=== PATIENT | female | born 1980 | race Caucasian/White ===

== ENCOUNTER 2019-04-29 10:03 | Emergency (ER) | payer OTHER, MEDICAID ==
[~2019-04-29] VITALS: Ht 177.8 cm; Wt 93.0 kg
[2019-04-29 10:14] VITALS: BP 113/74
[2019-04-29] MEDS ORDERED: BACLOFEN 10MG T10 MG PO (10:20)
[2019-04-29] MEDS ORDERED: GABAPENTIN600 M1 PO (10:20)
[2019-04-29] MEDS ORDERED: CELEXA40 MG PO (10:20)
[2019-04-29] MEDS ORDERED: MINIPRESS1 MG PO (10:21)
[2019-04-29] MEDS ORDERED: BUSPIRONE HCL10 MG PO (10:25)
[2019-04-29 11:06] LABS: INFLUENZA A ANTIGEN Negative (Negative); INFLUENZA B ANTIGEN Negative (Negative)
[2019-04-29 11:23] LABS: ABSOLUTE EOSINOPHILS 0.1 thou/uL (0.0-0.7); ABSOLUTE LYMPHOCYTES 1.9 thou/uL (0.8-5.3); ABSOLUTE NEUTROPHILS 7.1 thou/uL (1.6-8.1); BASOPHILS 0.3 %; EOSINOPHILS 0.5 %; HEMATOCRIT 37.7 % (37.0-47.0); HEMOGLOBIN 13.1 gm/dL (12.0-15.0); MCH 29.6 pg (26.0-34.0); MCHC 34.7 g/dL (28.0-37.0); MCV 85.4 fL (80.0-100.0); MONOCYTES 9.9 %; MPV 6.3 fl. (7.2-11.1); NUCLEATED RBCS 0 /100WBC; PLATELET COUNT* 336 thou/uL (150-400); POLYS 70.3 %; RBC 4.42 mil/uL (4.20-5.00); RDW-CV 16.3 % (10.5-14.5); WBC 10.1 thou/uL (4.0-11.0)
[2019-04-29 11:38] LABS: CREATININE 0.8 mg/dL (0.6-1.3); POTASSIUM 3.6 mmol/L (3.5-5.1)
[2019-04-29 11:54] LABS: ALBUMIN 3.3 g/dL (3.4-5.0); TOTAL BILIRUBIN 0.4 mg/dL (<0.1-1.0); TOTAL PROTEIN 7.3 g/dL (6.4-8.2)
[2019-04-29] MEDS ORDERED: AUGMENTIN 500-1 EACH PO (12:07)
[2019-04-29] MEDS ORDERED: PREDNISONE 10 M10 MG PO (12:07)
[2019-04-29] MEDS ORDERED: PROMETHAZI6.25 MG/5 PO (12:07)
[2019-04-29] MEDS ORDERED: TESSALON PERLE100 MG PO (12:07)
[2019-04-29] MEDS ORDERED: PROAIR HFA8.5 GM INH (12:07)
== END 2019-04-29 12:18 | disposition home or self-care (01) ==
LOC: M.ERS 10:03
PROVIDERS: Physician Assistant
DX: J20.9 Acute bronchitis, unspecified (principal); G62.9 Polyneuropathy, unspecified; Z88.6 Allergy status to analgesic agent; Z88.8 Allergy status to other drugs, medicaments and biological substances; Z90.710 Acquired absence of both cervix and uterus; Z86.2 Personal history of diseases of the blood and blood-forming organs and certain disorders involving the immune mechanism

== ENCOUNTER 2019-06-27 21:14 | Emergency (ER) | payer OTHER, MEDICAID ==
[~2019-06-27] VITALS: Ht 177.8 cm; Wt 88.5 kg
[~2019-06-27 21:14] MED LIST: AUGMENTIN 500-1 EACH PO; BACLOFEN 10MG T10 MG PO; BUSPIRONE HCL10 MG PO; CELEXA40 MG PO; GABAPENTIN600 M1 PO; MINIPRESS1 MG PO; PREDNISONE 10 M10 MG PO; PROAIR HFA8.5 GM INH; PROMETHAZI6.25 MG/5 PO; TESSALON PERLE100 MG PO
[2019-06-27 22:09] LABS: INFLUENZA A ANTIGEN Negative (Negative); INFLUENZA B ANTIGEN Negative (Negative)
[2019-06-27] MEDS ORDERED: ROXICODONE5 MG PO (22:21)
[2019-06-27 22:44] VITALS: BP 131/64
== END 2019-06-27 22:45 | disposition home or self-care (01) ==
LOC: M.ERS 21:14
PROVIDERS: Nurse Practitioner Family
DX: R07.82 Intercostal pain (principal); G62.9 Polyneuropathy, unspecified; Z88.6 Allergy status to analgesic agent; Z88.8 Allergy status to other drugs, medicaments and biological substances; Z90.710 Acquired absence of both cervix and uterus; Z86.2 Personal history of diseases of the blood and blood-forming organs and certain disorders involving the immune mechanism

== ENCOUNTER 2019-11-14 00:47 | Observation (INO) | payer OTHER, MEDICAID ==
[~2019-11-14] VITALS: Ht 177.8 cm; Wt 77.1 kg
[~2019-11-14 00:47] MED LIST changes: +ROXICODONE5 MG PO
[2019-11-14 00:51] VITALS: BP 126/83
[2019-11-14] MEDS ORDERED: BIOTIN10000 MC1 PO (01:04)
[2019-11-14] MEDS ORDERED: PRAZOSIN 1 MG CA1 M1 PO (01:04)
[2019-11-14] MEDS ORDERED: BACLOFEN 10MG T10 MG PO (01:04)
[2019-11-14] MEDS ORDERED: REVIA 50 MG TAB50 M1 PO (01:05)
[2019-11-14] MEDS ORDERED: VISTARIL 25 MG25 M1 PO (01:05)
[2019-11-14] MEDS ORDERED: NEURONTIN300 MG PO (01:05)
[2019-11-14] MEDS ORDERED: BUSPIRONE HCL15 MG PO (01:06)
[2019-11-14] MEDS ORDERED: CELEXA 20 MG TA20 MG PO (01:06)
[2019-11-14 01:21] LABS: ABSOLUTE LYMPHOCYTES 1.9 thou/uL (0.8-5.3); ABSOLUTE MONOCYTES 0.6 thou/uL (0.0-1.2); ABSOLUTE NEUTROPHILS 2.5 thou/uL (1.6-8.1); BASOPHILS 0.5 %; EOSINOPHILS 0.9 %; HEMATOCRIT 38.6 % (37.0-47.0); HEMOGLOBIN 13.2 gm/dL (12.0-15.0); LYMPHOCYTES 37.4 %; MCHC 34.2 g/dL (28.0-37.0); MCV 87.8 fL (80.0-100.0); MONOCYTES 10.9 %; MPV 6.4 fl. (7.2-11.1); NUCLEATED RBCS 0 /100WBC; PLATELET COUNT* 299 thou/uL (150-400); POLYS 50.3 %; RDW-CV 18.8 % (10.5-14.5); WBC 5.1 thou/uL (4.0-11.0)
[2019-11-14 01:28] LABS: CALCIUM 8.7 mg/dL (8.5-10.1); CREATININE 0.7 mg/dL (0.6-1.3); POTASSIUM 3.1 mmol/L (3.5-5.1)
[2019-11-14 01:32] LABS: ALBUMIN 3.2 g/dL (3.4-5.0); TOTAL BILIRUBIN 0.5 mg/dL (<0.1-1.0); TOTAL PROTEIN 6.3 g/dL (6.4-8.2)
[2019-11-14] MEDS ORDERED: SEROQUEL 25 MG25 M1 PO (02:24)
--- NOTE | 2019-11-14 02:24 | NUR ---
SPOKE WITH PATIENT ABOUT ADMISSION AND BOARDING PROCESS. PT INITIALLY STATES SHE WANTS TO GO HOME AND COME BACK AT 0500. SPOKE WITH PATIENT ABOUT RISKS OF LEAVING AGAINST MEDICAL ADVICE AND PT STATES THAT SHE WILL STAY, BUT IS REQUESTING FOOD. NPO STATUS DISCUSSED WITH PT. PT STATES THAT SHE HASN'T TAKEN HER NIGHT MEDICATIONS. DR OBREGON UPDATED, ORDERS RECEIVED FOR PATIENT TO TAKE HOME MEDICATIONS AT THIS TIME. PT TOOK BACLOFEN 10 MG, PRAZOSIN 3 MG, GABAPENTIN 600MG. PT ALSO REQUESTING "SOMETHING FOR SLEEP". DR OBREGON UPDATED.
[2019-11-14 02:29] LABS: URINE BILIRUBIN NEGATIVE (Negative); URINE BLOOD 2+ (Negative); URINE CLARITY CLEAR; URINE COLOR YELLOW; URINE GLUCOSE-RANDOM NEGATIVE (Negative); URINE KETONES NEGATIVE (Negative); URINE LEUKOCYTES-REFLEX NEGATIVE (Negative); URINE NITRITE-REFLEX NEGATIVE (Negative); URINE PROTEIN NEGATIVE (Negative); URINE SPECIFIC GRAVITY <= 1.005 (1.005-1.030); URINE UROBILINOGEN 0.2 E.U./dl (0.2-1.0)
[2019-11-14 02:35] LABS: CASTS None Seen /LPF (None Seen); CRYSTALS None Seen /LPF (None Seen); MUCUS 0-3 Light strn/LPF (None Seen); SQUAMOUS 0-3 Few /LPF (0-3); URINE RBC 3-10 Few /HPF (0-2); URINE WBC-REFLEX 0-5 Rare /HPF (0-5)
--- NOTE | 2019-11-14 02:39 | NUR ---
PT PLACED ON INPATIENT BED, CALL LIGHT WITHIN REACH. IV FLUIDS WERE STARTED, PT STATES THAT THERE WAS TOO MUCH PAIN WITH INFUSION, IV SITE ASSESSED, 20 MLS OF NORMAL SALINE USED TO FLUSH. PT STATES IV FLUIDS WERE TOO COLD AND SHE COULD NOT HANDLE THE INFUSION, DUE TO HER NEUROPATHY. DR OBREGON UPDATED.
[2019-11-14 06:03] VITALS: BP 87/52
[2019-11-14 08:01] VITALS: BP 101/64
[2019-11-14 08:30] VITALS: BP 100/59
[2019-11-14] MEDS ORDERED: DIPHENHYDRAMINE25 M3 PO (09:25)
[2019-11-14] MEDS ORDERED: TESSALON PERLE100 M1 PO (09:26)
[2019-11-14] MEDS ORDERED: B12INJ SUBQ (09:28)
[2019-11-14] MEDS ORDERED: XARELTO10 M1 PO (09:28)
[2019-11-14] MEDS ORDERED: DULOXETINE HCL60 MG PO (09:28)
[2019-11-14 13:26] VITALS: BP 100/59
[2019-11-14 14:02] LABS: HEMATOCRIT 36.2 % (37.0-47.0); HEMOGLOBIN 12.3 gm/dL (12.0-15.0)
--- NOTE | 2019-11-14 15:30 | NUR ---
PATIENT DISCHARGED TO HOME. DISCHARGE PAPERS REVIEWED AND SIGNED. COLONOSCOPY PREP INSTRUCTIONS GIVEN. NO PRESCRIPTIONS. IV REMOVED. PATIENT DENIES ANY FURTHER NEEDS. PATIENT TAKEN AMBULATORY TO EXIT. LEFT WITH MOTHER.
--- NOTE | 2019-11-14 19:38 | CON ---
[address] [address] CONSULTATION Name: BASILIODILIP Room: [address] Hemant Melendez#: [id number] Admission: 11/14/19 Attend Phys: Riley García MD Discharge: 11/14/19 Date of : 80 Report #: [id number] THIS REPORT FOR: //name// cc: Deo Perez Chad W. DO ~ THIS REPORT FOR: //name// CC: Riley Perez DO DICTATED BY: Gabi Meyer [facility] DATE OF SERVICE: 11/14/2019 PRIMARY CARE PHYSICIAN: Deo Perez DO Please note at the time of this dictation, seen and physically examined by myself. REASON FOR CONSULTATION: Rectal bleeding. HISTORY OF PRESENT ILLNESS: This is a 39-year-old female who presented to the Emergency Room with about one and half hours worth of rectal bleeding. The patient states that she had a little bit of abdominal cramping, thought she had some gas. When she had gone to bed and expelled some gas and then felt a warm moist sensation when she went to go to the bathroom. She thought maybe she had a little bit of incontinence and urine because she has had that ever since she had her hysterectomy years ago and she noticed a lot of blood, which was continuous for about one and half hours, which made her very nervous and prompted her to come in for further evaluation. The patient denies any blood thinners. She has not taken any ibuprofen, Aleve or anything like that. She has never had this happened before. She has noted on occasion that she has had just a small amount of maybe a little blood on tissue. She has had no more active bleeding since she has been here just some very mild drops of blood that had been noted on a pad. The patient has never seen a ict teacher before except she said maybe 10-15 years ago when she was in [place], she does not remember what she had done or where. ALLERGIES: NSAIDs, ASPIRIN AND ACETAMINOPHEN. MEDICATIONS: From home include ____, baclofen, ____, Revia, gabapentin, Vistaril, buspirone, Celexa and Seroquel. PAST MEDICAL HISTORY: Transverse myelitis, peripheral neuropathy, [place] [address] CONSULTATION Name: DILIP RICHMOND Room: [address] Hemant Melendez#: [id number] Admission: 11/14/19 Attend Phys: Riley García MD Discharge: 11/14/19 Date of : 80 Report #: [id number] PAST SURGICAL HISTORY: Hysterectomy and right ankle fracture repair. FAMILY HISTORY: The patient is adopted, but she does know on her paternal side of breast cancer. SOCIAL HISTORY: She does vape periodically. Alcohol socially and denies any illegal drug use except for some occasional marijuana use. REVIEW OF SYSTEMS: Twelve-point review of systems is essentially negative except what is mentioned in the HPI. PHYSICAL EXAMINATION: VITAL SIGNS: Temperature 36.7, pulse 95, respirations 14, blood pressure 100/59. HEART: Regular rate and rhythm. LUNGS: Clear. ABDOMEN: Soft, positive bowel sounds in all 4 quadrants with some very minimal tenderness noted in the lower abdomen. LABORATORY DATA: Hemoglobin is 13.2, white count 5.1, platelets 294. LFTs: ALT, AST are slightly elevated, ALT 76, AST 58. IMPRESSION: 1. Rectal bleeding. 2. Abdominal cramping. 3. Family history paternal side breast cancer. PLAN: 1. The patient is wanting to go home and would like to do this as an outpatient. Since the patient recently had COVID testing today and we have an opening tomorrow for a colonoscopy, we have placed her on for 08:30 with arrival time at 7:30. She will be given prep instructions prior to her discharge, she will remain on a clear liquid diet throughout the rest of the day and start her MiraLax prep this afternoon along with Dulcolax tablets. 2. The patient is scheduled for 11/15/2019 at 8:30 with arrival time at 7:[address] Nicolas for a colonoscopy to evaluate her for rectal bleeding. Thank you for allowing us to participate in this patient's care. Please do not hesitate to call with any questions in regard to this consult. <ELECTRONICALLY SIGNED> By: Syd Delgado DO 11/14/19 [id number] Delgado DO /nt
== END 2019-11-14 15:30 | disposition home or self-care (01) ==
LOC: M.ERS 00:47 → M.TBA-ER 01:49 → M.ORTHSURG 01:49 → M.TBA-ER 01:49 → M.ORTHSURG 08:27
PROVIDERS: Emergency Medicine Emergency Medical Services; Nurse Practitioner; ADMIT Internal Medicine; ATTEND Internal Medicine
DX: K62.5 Hemorrhage of anus and rectum (principal); R42 Dizziness and giddiness; G62.9 Polyneuropathy, unspecified; Z87.891 Personal history of nicotine dependence; F41.9 Anxiety disorder, unspecified; F32.9 Major depressive disorder, single episode, unspecified

== ENCOUNTER 2021-04-23 20:29 | Emergency (ER) | payer OTHER, MEDICAID ==
[~2021-04-23] VITALS: Ht 177.8 cm; Wt 79.4 kg
[~2021-04-23 20:29] MED LIST changes: +B12INJ SUBQ; +BIOTIN10000 MC1 PO; +BUSPIRONE HCL15 MG PO; +CELEXA 20 MG TA20 MG PO; +DIPHENHYDRAMINE25 M3 PO; +DULOXETINE HCL60 MG PO; +NEURONTIN300 MG PO; +PRAZOSIN 1 MG CA1 M1 PO; +REVIA 50 MG TAB50 M1 PO; +SEROQUEL 25 MG25 M1 PO; +TESSALON PERLE100 M1 PO; +VISTARIL 25 MG25 M1 PO; +XARELTO10 M1 PO
[2021-04-23 21:10] LABS: ABSOLUTE EOSINOPHILS 0.1 thou/uL (0.0-0.7); ABSOLUTE LYMPHOCYTES 2.2 thou/uL (0.8-5.3); ABSOLUTE MONOCYTES 0.4 thou/uL (0.0-1.2); ABSOLUTE NEUTROPHILS 1.1 thou/uL (1.6-8.1); EOSINOPHILS 1.5 %; HEMATOCRIT 41.9 % (37.0-47.0); HEMOGLOBIN 14.5 gm/dL (12.0-15.0); LYMPHOCYTES 58.7 %; MCH 33.2 pg (26.0-34.0); MCHC 34.6 g/dL (28.0-37.0); MONOCYTES 9.8 %; MPV 6.9 fl. (7.2-11.1); NUCLEATED RBCS 0 /100WBC; PLATELET COUNT* 228 thou/uL (150-400); RBC 4.37 mil/uL (4.20-5.00); RDW-CV 14.4 % (10.5-14.5); WBC 3.7 thou/uL (4.0-11.0)
[2021-04-23 21:34] LABS: URINE BILIRUBIN NEGATIVE (Negative); URINE BLOOD NEGATIVE (Negative); URINE CLARITY CLEAR; URINE COLOR YELLOW; URINE GLUCOSE-RANDOM NEGATIVE (Negative); URINE KETONES NEGATIVE (Negative); URINE LEUKOCYTES-REFLEX NEGATIVE (Negative); URINE NITRITE-REFLEX NEGATIVE (Negative); URINE PROTEIN NEGATIVE (Negative); URINE UROBILINOGEN 0.2 E.U./dl (0.2-1.0)
[2021-04-23 21:37] LABS: ACETAMINOPHEN < 2 ug/mL (10-30); SALICYLATE 3.3 mg/dL (2.8-20.0)
[2021-04-23 21:49] LABS: ALCOHOL 402 mg/dL (<10)
[2021-04-23 21:56] LABS: CALCIUM 8.6 mg/dL (8.5-10.1); CREATININE 0.9 mg/dL (0.6-1.3); POTASSIUM 3.6 mmol/L (3.5-5.1)
[2021-04-23 22:00] LABS: ALBUMIN 3.7 g/dL (3.4-5.0); TOTAL BILIRUBIN 0.4 mg/dL (<0.1-1.0); TOTAL PROTEIN 7.3 g/dL (6.4-8.2)
[2021-04-23 22:34] VITALS: BP 165/98
[2021-04-23 22:38] LABS: AMP/METHAMP Negative (Negative); BARBITURATES Negative (Negative); BENZODIAZEPINES Negative (Negative); METHADONE Negative (Negative); OPIATES Negative (Negative); PCP Negative (Negative); THC POSITIVE (Negative)
[2021-04-23 23:51] LABS: COCAINE Negative (Negative)
--- NOTE | 2021-04-24 14:38 | EKG ---
[place] [address] ELECTROCARDIOGRAM REPORT Name: DILIP RICHMOND Room: 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: [place] : 1980 Requested By: Rosi Chamberlain Order Number: [id number] MD: Nakul Miner Measurements Intervals [place] Rate: 68 P: 56 IN: 162 QRS: -16 QRSD: 91 T: 41 QT: 462 QTc: 492 Interpretive Statements Sinus rhythm Borderline left axis deviation Borderline prolonged QT interval No previous ECG available for comparison Electronically Signed On 04-24-2021 14:38:37 DIGITAL ASSET COORDINATOR by Nakul Miner [email or web address] <ELECTRONICALLY SIGNED> By: Nakul Miner MD, [facility] 04/24/21 1438 17 17 Nakul Miner MD, FAC /EPI
== END 2021-04-23 22:34 | disposition home or self-care (01) ==
LOC: M.ERS 20:29
PROVIDERS: Nurse Practitioner Family
DX: F10.10 Alcohol abuse, uncomplicated (principal); Z20.822 Contact with and (suspected) exposure to COVID-19; Y90.9 Presence of alcohol in blood, level not specified; Z90.710 Acquired absence of both cervix and uterus; Z79.899 Other long term (current) drug therapy; Z88.6 Allergy status to analgesic agent; Z88.5 Allergy status to narcotic agent